=== PATIENT | female | born 1945 | race Caucasian/White ===

== ENCOUNTER 2017-07-07 13:10 | Outpatient (CLI) | payer MEDICARE, BC | END 2017-07-07 13:11 | disposition home or self-care (01) | LOC: BICMAMMO 13:10 | PROVIDERS: ATTEND Internal Medicine | DX: Z12.31 Encounter for screening mammogram for malignant neoplasm of breast (principal); R92.1 Mammographic calcification found on diagnostic imaging of breast | CPT/HCPCS: 77063; 77067 ==

== ENCOUNTER 2017-10-06 08:18 | Outpatient (CLI) | payer MEDICARE, BC ==
--- NOTE | 2017-10-07 12:18 | NM ---
RADIOIODINE THYROID UTPAKE AND SCAN: HISTORY: Nontoxic multinodular goiter. RADIOPHARMACEUTICAL: 259 mCi iodine 123 administered orally. FINDINGS: Planar, anterior, and both anterior oblique images of the thyroid gland were obtained. There is a suggestion of a focal cold nodule in the left mid lobe. The 24-hour uptake measures 23% (normal 10-30%). IMPRESSION: 1. Cold nodule in the left lobe of the thyroid gland. Further evaluation with ultrasound is recomme nded. 2. Normal 24-hour uptake. POS: ELISA
== END 2017-10-06 08:19 | disposition home or self-care (01) ==
LOC: NM 08:18
PROVIDERS: ATTEND Internal Medicine
DX: E04.2 Nontoxic multinodular goiter (principal)
CPT/HCPCS: 78014; A9516

== ENCOUNTER 2018-07-17 11:06 | Outpatient (CLI) | payer MEDICARE, BC | END 2018-07-17 11:07 | disposition home or self-care (01) | LOC: BICMAMMO 11:06 | PROVIDERS: ATTEND Obstetrics & Gynecology | DX: Z12.31 Encounter for screening mammogram for malignant neoplasm of breast (principal) | CPT/HCPCS: 77063; 77067 ==

== ENCOUNTER 2018-08-28 14:16 | Outpatient (CLI) | payer MEDICARE, BC ==
--- NOTE | 2018-08-28 15:47 | BD ---
Exam: DEXA Bone Density 08/28/18 HISTORY: Postmenopausal screening for osteoporosis. FINDINGS: Lumbar Spine: BMD (g/cm2) T-Score: Z-Score: L1 0.748 -2.2 0.0 L2 0.876 -1.4 1.0 L3 0.849 -2.1 0.4 L4 0.790 -2.5 0.1 L1-L4 0.815 -2.1 0.3 Femoral Neck: 0.638 -1.9 0.2 Total Femur: 0.852 -0.7 1.1 The ten year fracture risk for a major osteoporotic fracture is 13% and for hip fracture is 3%. Impression: Osteopenia. POS: OFF
== END 2018-08-28 14:17 | disposition home or self-care (01) ==
LOC: BICMAMMO 14:16
PROVIDERS: ATTEND Obstetrics & Gynecology
DX: M85.89 Other specified disorders of bone density and structure, multiple sites (principal)
CPT/HCPCS: 77080

== ENCOUNTER 2019-08-06 15:03 | Outpatient (CLI) | payer MEDICARE, BC ==
--- NOTE | 2019-08-06 15:50 | MMO ---
Bilateral MAMMO Bilat Screen [facility]. CLINICAL HISTORY: Patient is 74 years old and is seen for screening. The patient has no family history of breast cancer. The patient has no personal history of cancer. VIEWS: The views performed were: bilateral craniocaudal with tomosynthesis and bilateral mediolateral oblique with tomosynthesis. FILMS COMPARED: The present examination has been compared to prior imaging studies performed at [facility] on 05/05/2015, 05/06/2016, 07/07/2017 and 07/17/2018. This study has been interpreted with the assistance of computer-aided detection. MAMMOGRAM FINDINGS: The breasts are heterogeneously dense, which could obscure a lesion on mammography. There are stable benign appearing calcifications seen in both breasts. There are no suspicious masses, suspicious calcifications, or new areas of architectural distortion. IMPRESSION: THERE IS NO MAMMOGRAPHIC EVIDENCE OF MALIGNANCY. A ROUTINE FOLLOW-UP MAMMOGRAM IN 1 YEAR IS RECOMMENDED. THE RESULTS OF THIS EXAM WERE SENT TO THE PATIENT. ACR BI-RADS Category 2 - Benign finding MAMMOGRAPHY NOTE: 1. A negative mammogram report should not delay a biopsy if a dominant of clinically suspicious mass is present. 2. Approximately 10% to 15% of breast cancers are not detected by mammography. 3. Adenosis and dense breasts may obscure an underlying neoplasm. Reported by: EVERETT MAJANO MD Electonically Signed: [id number]
== END 2019-08-06 15:04 | disposition home or self-care (01) ==
LOC: BICMAMMO 15:03
PROVIDERS: ATTEND Obstetrics & Gynecology
DX: Z12.31 Encounter for screening mammogram for malignant neoplasm of breast (principal)
CPT/HCPCS: 77063; 77067

== ENCOUNTER 2019-08-30 15:09 | Outpatient (CLI) | payer BC, MEDICARE, OTHER ==
--- NOTE | 2019-08-30 15:35 | BD ---
EXAM: DEXA bone density examination HISTORY: 74-year-old female for osteoporosis screening COMPARISON: August 28, 2018 FINDINGS: L1--bone mineral density 0.758 g/sq cm; T score -2.1. Z score 0.1 L2--bone mineral density 0.852 g/sq cm; T score -1.6; Z score 0.9 L3--bone mineral density 0.925 g/sq cm; T score -1.4; Z score 1.1 L4--bone mineral density 0.724 g/sq cm; T score -3.1, Z score -0.4 Total L1-L4--bone mineral density 0.815 g/sq cm; T score -2.1, Z score 0.4 Left femoral neck--bone mineral density0.631; T score -2.0, Z score 0.2 Total proximal left femur--bone mineral density 0.847; T score -0.8, Z score 1.1 This patient has a 10 year WHO fracture risk of a major osteoporotic fracture of 14% and of a hip fra cture of 3.6%. IMPRESSION: Based on the WHO criteria, the patient's bone mineral density is consideredOsteopenic. T he patient is at moderate risk for fracture. Bone mineral density is not appreciably changed from the comparison examination dated 08/28/2018.
== END 2019-08-30 15:10 | disposition home or self-care (01) ==
LOC: BICMAMMO 15:09
PROVIDERS: ATTEND Obstetrics & Gynecology
DX: M85.89 Other specified disorders of bone density and structure, multiple sites (principal)
CPT/HCPCS: 77080

== ENCOUNTER 2020-08-08 14:17 | Outpatient (CLI) | payer MEDICARE, BC ==
--- NOTE | 2020-08-08 15:25 | MMO ---
Bilateral MAMMO Bilat Screen [facility]. CLINICAL HISTORY: Patient is 75 years old and is seen for screening. The patient has no family history of breast cancer. The patient has no personal history of cancer. VIEWS: The views performed were: bilateral craniocaudal with tomosynthesis and bilateral mediolateral oblique with tomosynthesis. FILMS COMPARED: The present examination has been compared to prior imaging studies performed at [facility] on 05/06/2016, 07/07/2017, 07/17/2018 and 08/06/2019. This study has been interpreted with the assistance of computer-aided detection. MAMMOGRAM FINDINGS: The breasts are heterogeneously dense, which could obscure a lesion on mammography. There are stable calcifications seen in both breasts. There are no suspicious masses, suspicious calcifications, or new areas of architectural distortion. IMPRESSION: THERE IS NO MAMMOGRAPHIC EVIDENCE OF MALIGNANCY. A ROUTINE FOLLOW-UP MAMMOGRAM IN 1 YEAR IS RECOMMENDED. THE RESULTS OF THIS EXAM WERE SENT TO THE PATIENT. ACR BI-RADS Category 2 - Benign finding MAMMOGRAPHY NOTE: 1. A negative mammogram report should not delay a biopsy if a dominant of clinically suspicious mass is present. 2. Approximately 10% to 15% of breast cancers are not detected by mammography. 3. Adenosis and dense breasts may obscure an underlying neoplasm. Reported by: SHELLY MURILLO MD Electonically Signed: [id number]
== END 2020-08-08 14:18 | disposition home or self-care (01) ==
LOC: BICMAMMO 14:17
PROVIDERS: ATTEND Obstetrics & Gynecology
DX: Z12.31 Encounter for screening mammogram for malignant neoplasm of breast (principal)
CPT/HCPCS: 77063; 77067

== ENCOUNTER 2020-09-04 13:48 | Outpatient (CLI) | payer MEDICARE, BC | END 2020-09-04 13:49 | disposition home or self-care (01) | LOC: BICMAMMO 13:48 | PROVIDERS: ATTEND Obstetrics & Gynecology | DX: M85.89 Other specified disorders of bone density and structure, multiple sites (principal) | CPT/HCPCS: 77080 ==

== ENCOUNTER 2021-08-13 13:59 | Outpatient (CLI) | payer MEDICARE, BC | END 2021-08-13 14:00 | disposition home or self-care (01) | LOC: BICMAMMO 13:59 | PROVIDERS: ATTEND Internal Medicine | DX: Z12.31 Encounter for screening mammogram for malignant neoplasm of breast (principal) | CPT/HCPCS: 77063; 77067 ==

== ENCOUNTER 2022-09-12 11:05 | Outpatient (CLI) | payer MEDICARE, BC | END 2022-09-12 11:06 | disposition home or self-care (01) | LOC: BICMAMMO 11:05 | PROVIDERS: ATTEND Obstetrics & Gynecology | DX: M85.89 Other specified disorders of bone density and structure, multiple sites (principal) | CPT/HCPCS: 77080 ==